=== PATIENT | female | born 1960 | race African-American/Black ===

== ENCOUNTER → 2018-03-08 | Outpatient (CLI) | payer OTHER ==
[~2018-03-08] MED LIST: DILT120C68 PO; FOLI1TAB8 PO; HYDR500C PO; TPRSR25 PO
== END | disposition home or self-care (01) ==
LOC: C.PAPS 17:24
PROVIDERS: ATTEND Family Medicine
DX: Z12.4 Encounter for screening for malignant neoplasm of cervix (principal)